=== PATIENT | female | born 2005 | race Caucasian/White ===

== ENCOUNTER 2025-04-04 11:26 | Emergency (ER) | payer OTHER, SELFPAY ==
--- NOTE | 2025-04-04 11:28 | ED.URI ---
HPI - URI/Sore Throat General Chief Complaint: Upper Respiratory Infection Stated Complaint: SINUS CONGESTION Time Seen by Provider: 04/04/25 11:28 Source: patient Mode of arrival: ambulatory Limitations: no limitations History of Present Illness HPI Narrative: Марина is a 19 year old female patient presenting to the clinic today with c/o sinus congestion x5 days. 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 Has sinus congestion with headache and chest congestion. Denies any known fevers, chills, body aches. States cough is productive at times with some clear phlegm. States she is late on her menses and could be . Has been taking Zyrtec for her symptoms. Related Data Home Medications ?Medication ?Instructions ?Recorded ?Confirmed ?Last Taken ?Type No Home Medications 04/04/25 04/04/25 Unknown History Review of Systems Review of Systems: Pertinent positives per HPI. Patient denies any fever, chills, rash, headache, visual changes, dizziness, shortness of breath, chest pain, palpitations, nausea, vomiting, diarrhea, constipation, abdominal pain, or any urinary issues. PMFSH Comments At the time of my signature, I reviewed and agree with the nursing past medical, surgical, social, and family history. There is no relevant family history pertinent to the patient complaint. Exam Narrative: General: Well-developed, well nourished, in no apparent distress Head: Normocephalic, atraumatic Eyes: Pupils equally round and reactive to light bilaterally, EOM intact, sclera and conjunctive clear, no discharge, lids normal Ears: TMs intact and congested, ear canals clear, no drainage, grossly hearing normal. Nose: Nares patent, clear nasal discharge, moderate inflammation, no sinus tenderness. Mouth: Oral pharynx without lesions or masses, good dentition, MMM. Postnasal drip Neck: Supple, trachea midline, no enlargement of anterior or posterior cervical nodes, no thyroid masses or goiter palpable. Cardio: Regular rate and rhythm, s1 and s2 normal, no murmur appreciated. Resp: Clear to auscultation bilaterally, no rhonchi, rales, wheezing or rubs Course Course Emergency Course: Portions of this record may have been created with voice recognition software. Level of Care: Express Care Visit Vital Signs Vital signs: Vital Signs Oxygen Delivery Room Air 04/04/25 11:30 Temperature 36.8 C 04/04/25 11:35 Pulse Rate 78 04/04/25 11:35 Respiratory Rate 16 04/04/25 11:35 Blood Pressure 118/71 04/04/25 11:35 Pulse Oximetry 100 04/04/25 11:35 Oxygen Delivery Room Air 04/04/25 11:30 Vital signs reviewed MDM - URI/Sore Throat MDM Narrative Medical decision making narrative: At the time of visit patient is resting comfortably on the exam table. Patient appears to be nontoxic. Labs: Bedside test was negative in the clinic today. Plan: I suspect patient has URI. Prescription for prednisone was sent to the pharmacy. Supportive measures were discussed with the patient and they voiced understanding discharge instructions and agrees to treatment plan. Return precautions reviewed Differential Diagnosis Differential diagnosis: Likely upper respiratory infection, otitis media, sinusitis, viral infection, bronchitis, influenza, pharyngitis and other (COVID) Discharge Plan Discharge Clinical Impression: Upper respiratory infection Patient Disposition: Home Condition: Stable Instructions: Antibiotic Form, Cold Symptoms (ED) Additional Instructions: Bedside test negative in the clinic today Take prescription medications only as prescribed-prednisone Increase fluids and stay well hydrated Tylenol/motrin for pain/fever Flonase and OTC antihistamines as directed Vicks vapor rub to open sinuses Sinus rinses for congestion Cepacol spray, cough drops, throat lozenges, warm tea with honey/lemon, gargle salt water to soothe throat BRAT diet for diarrhea Clear liquids x 24 hours then advance as tolerated for nausea/vomiting Go to the ED if you develop a worsening in your condition- high fever not controlled by Tylenol or Motrin, dehydration, weakness, lethargy, shortness of breath, or chest pain. Follow up with your PCP in 3-5 days if symptoms persist. Patient Language: Slovak Prescriptions: New prednisone 20 mg tablet 40 mg PO DAILY 5 Days Qty: 10 0RF No Action No Home Medications Follow-up/Referrals: UNKNOWN,DOCTOR [Non-Staff] - Stand Alone Forms: Work/School Release IP Time of Disposition: 11:42 Quality NIHSS Nursing Documentation ED NIHSS nursing documentation: reviewed/agree
[2025-04-04 11:35] VITALS: BP 118/71; PULSE 78; RESP 16; TEMP 36.8; O2SAT 100
[2025-04-04 11:56] LABS: BEDSIDEPREGUCG Negative (Negative)
== END 2025-04-04 11:55 | disposition home or self-care (01) ==
PROVIDERS: Emergency Provider Nurse Practitioner Family
DX: J06.9 Acute upper respiratory infection, unspecified (principal)
CPT/HCPCS: 81025; 99203; G0463